=== PATIENT | male | born 1955 | race Caucasian/White ===

== ENCOUNTER 2020-04-24 13:35 | Emergency (ER) | payer MEDICAID, OTHER ==
[~2020-04-24] VITALS: Ht 177.8 cm; Wt 99.8 kg
[2020-04-24 15:22] VITALS: BP 150/95
[2020-04-24] MEDS ORDERED: EPINEPHrine HCL 1 MG/1 ML AMP SC ONE (15:30)
[2020-04-24] MEDS ORDERED: diphenhdrAMINE HCL 50 MG/1 ML VL IM ONE (15:30)
== END 2020-04-24 16:25 | disposition home or self-care (01) ==
LOC: ER 13:35
DX: R21 Rash and other nonspecific skin eruption (principal); B99.8 Other infectious disease; I10 Essential (primary) hypertension
CPT/HCPCS: 96372; 99284; J0171; J1200